=== PATIENT | female | born 1995 | race Caucasian/White ===

== ENCOUNTER 2017-03-25 19:52 | Emergency (ER) | payer BC, OTHER ==
--- NOTE | 2017-03-25 21:09 | ERNOTE ---
ENT HPI Presenting Symptoms: other - sore throat Time Seen by Provider: 03/25/17 21:02 Source: patient - Immun/Allergies/Home Medications Immunizations: IMMUNIZATION HX Immunizations Up to Date Yes History of Influenza Vaccine No Hx Pneumococcal Vaccination No Allergies/Adverse Reactions: Allergies Allergy/AdvReac Type Severity Reaction Status Date / Time Penicillins Allergy Severe Swelling Verified 03/25/17 20:07 (Other) Home Medications: HOME MEDICATIONS NK [No Home Medication] 03/25/17 [Last Taken Unknown] - History of Present Illness Narrative: Pt had onset of sore throat 2 days ago. also LAD anterior cervical and some stiffness to the muscles of her neck Severity: Present: moderate ENT Location: Present: throat Prearrival Treatment: Present: over the counter meds Review of Systems - Review of Systems Constitutional: Present: no symptoms reported EYE: Present: no symptoms reported ENT: Present: See HPI Respiratory: Present: no symptoms reported Cardiology: Present: no symptoms reported - Patient's Past Medical History Patient History - Medical: No pertinent hx Patient History - Cardiac/Respiratory: No pertinent hx Patient History - Surgical Procedures: T & A Patient History - Other: None LMP (females 10-50): this week LMP (Calendar): 03/24/17 - Social History Living Situations: home Abuse History: No History of abuse Psych History: No pertinent hx Smoking Status: Never smoker Have you smoked in the past 12 months: No Do you dip or chew tobacco: No Alcohol Use: occasionally Drug Use: none - Immunizations Immunizations Up to Date: Yes Hx Pneumococcal Vaccination: No History of Influenza Vaccine: No Physical Exam - Physical Exam General Appearance: Present: wd/wn, alert, no apparent distress Head Exam: Present: normal inspection, no evidence of injury Eye Exam: Normal inspection: bilateral Ears, Nose, Throat: Present: pharyngeal erythema - mild posteriorly/ laterally Neck: Present: lymphadenopathy (R), lymphadenopathy (L) Respiratory: Present: no respiratory distress, no accessory muscle use, lungs clear Cardiovascular/Chest: Present: regular rate, rhythm Back Exam: Present: normal inspection, normal range of motion Neurological Exam: Present: alert, oriented, normal mood/affect Skin Exam: Present: normal color, warm/dry ED Progress - Results and Orders Patient's Lab Results:: I have reviewed the patient's lab results. - Vital Signs Patient's Vital Signs:: I have reviewed the patient's vital signs. Vital Signs: Vital Signs 03/25/17 20:07 Temperature 36.8 C Pulse Rate 82 Respiratory 12 Rate Blood Pressure 139/83 O2 Sat by Pulse 97 Oximetry - Progress/Reassessment Chief Complaint: Sore Throat Progress Note-Subjective: 03/25/17 22:30 Discussed viral pharyngitis with pt and her mom. Encouraged her to have repeat mono testing if not better in 7 days Departure Clinical Impression: Pharyngitis Qualifiers: Pharyngitis/tonsillitis etiology: unspecified etiology Qualified Code(s): J02.9 - Acute pharyngitis, unspecified - Departure Disposition: Home self-care Condition: Good Instructions: Sore Throat, [id number] Additional Instructions: Use tylenol, ibuprofen or sore throat losenges as needed for sore throat. If symptoms continue for a week, see your regular doctor for additional mono testing Referrals: Ciara Boyle MD [Primary Care Provider] -
[2017-03-25 22:44] VITALS: BP 114/78
== END 2017-03-25 22:34 | disposition home or self-care (01) ==
LOC: ER 19:52
DX: J02.9 Acute pharyngitis, unspecified (principal)